=== PATIENT | female | born 2000 | race Caucasian/White ===

== ENCOUNTER 2022-02-07 11:39 | Outpatient (CLI) | payer OTHER, SELFPAY | END 2022-02-07 11:40 | disposition home or self-care (01) | LOC: AMB 03-18 19:14 | PROVIDERS: Visit Provider Family Medicine | DX: R56.9 Unspecified convulsions (principal) | CPT/HCPCS: A0425; A0427 ==

== ENCOUNTER 2022-02-07 12:03 | Emergency (ER) | payer OTHER, SELFPAY ==
[2022-02-07] VITALS (16 sets, daily range): BP systolic 94–114; BP diastolic 64–81; PULSE 56–70; RESP 14; TEMP 36.7; O2SAT 89–100; BMI 21.3
--- NOTE | 2022-02-07 12:33 | ED.GENADULT ---
HPI - General Adult General Time Seen by Provider: 12:34 Date Seen: 02/07/22 Chief complaint: Unspecified Complaint, Adult Stated complaint: Seizure Time Seen by Provider: 02/07/22 12:20 Source: patient Mode of arrival: EMS Limitations: no limitations History of Present Illness HPI narrative: Patient is a 21 year white female from [facility] attending [facility] [place]. She has noticed over the last 3 months it is every time she is stressed she gets lightheaded has to sit down, escape do a ?safe place?. She was taking a Thai final today and felt very stressed and felt like her body was ?shutting down? she did not have any seizure activity, she had normal consciousness throughout this episode, she went to the girl's bathroom and sat down. She said she gets some eye twitching with this she also gets some throat tightening. That is all gone now, ambulance was called she was brought to the hospital. She feels pretty much back to normal now she has no fevers, no chills, no chest pain, no leg swelling or edema, no bleeding or clotting problems. She has had a history she reports that she feels his depression and anxiety, anxiety has been really severe over the last 3 months. She has had no workup for this, no meds for this. Noted also she has a couple of argueta on her forearm that look old and all and also on her right ankle. When asked about this she said she was just seeing what it was like to burn part of her skin. Related Data Home Medications Medication Instructions Recorded Confirmed magnesium chloride 1 tab PO DAILY 02/07/22 02/07/22 multivitamin with minerals-folic 1 tab PO DAILY 02/07/22 02/07/22 acid 200 mcg chewable tablet (Womens Daily Gummies) Allergies Allergy/AdvReac Type Severity Reaction Status Date / Time No Known Drug Allergies Allergy Verified 02/07/22 12:06 Review of Systems Status of ROS: Reports: 10 or more systems reviewed and unremarkable except as noted in History and below [facility] Social History Smoking Status: Never smoker Do you use any of these nicotine containing products: None Second hand tobacco smoke exposure: No How often do you have a drink containing alcohol: monthly or less How often do you have six or more drinks on one occasion: Never AUDIT-C Alcohol total score: 1 Non-prescribed substance use: marijuana (any form) Non-prescribed substance use details: marijuana once monthly service: No Exam Narrative: Exam Narrative: Objective: Patient is actually somewhat giddy, alert orient x3 cooperative. I had asked her several times a put her phone down . Vital signs are unremarkable HEENT is unremarkable facial asymmetry no scleral icterus Neck is supple Chest is clear no rales or wheezing Heart rhythm regular no murmur Abdomen benign soft nontender Extremities are no edema, neurologic nonfocal Two linear small argueta on her left forearm and also similar on her right ankle medial, no cellulitis, look like they are old and scabbed. Good peripheral perfusion Mental status: Patient is alert orient x3 appears somewhat giddy, does not appear manic, does not have pressured speech, does knots discuss any suicidal ideation or plan. Const: Vital Signs, click to edit/add: Vital Signs - 24 hr 02/07/22 12:08 02/07/22 12:08 02/07/22 12:09 Temperature 98.1 F Pulse Rate 60 63 Pulse Rate [Pulse Oximeter] 66 Respiratory Rate 14 Blood Pressure 114/74 Blood Pressure [Ri ght Upper Arm] 114/74 Pulse Oximetry 98 99 99 Oxygen Delivery Me thod Room Air 02/07/22 12:30 02/07/22 12:32 02/07/22 12:33 Temperature Pulse Rate 61 65 69 Pulse Rate [Pulse Oximeter] Respiratory Rate Blood Pressure 102/81 Blood Pressure [Ri ght Upper Arm] Pulse Oximetry 99 91 89 Oxygen Delivery Me thod 02/07/22 13:00 02/07/22 13:02 02/07/22 13:30 Temperature Pulse Rate 68 64 57 L Pulse Rate [Pulse Oximeter] Respiratory Rate Blood Pressure 111/66 Blood Pressure [Ri ght Upper Arm] Pulse Oximetry 98 100 98 Oxygen Delivery Me thod 02/07/22 13:32 02/07/22 14:00 02/07/22 14:02 Temperature Pulse Rate 66 61 56 L Pulse Rate [Pulse Oximeter] Respiratory Rate Blood Pressure 108/68 110/65 Blood Pressure [Ri ght Upper Arm] Pulse Oximetry 96 98 97 Oxygen Delivery Me thod 02/07/22 14:30 02/07/22 14:31 02/07/22 15:00 Temperature Pulse Rate 70 60 63 Pulse Rate [Pulse Oximeter] Respiratory Rate Blood Pressure 97/64 Blood Pressure [Ri ght Upper Arm] Pulse Oximetry 99 91 97 Oxygen Delivery Me thod 02/07/22 15:02 02/07/22 15:30 Temperature Pulse Rate 65 66 Pulse Rate [Pulse Oximeter] Respiratory Rate Blood Pressure 94/81 Blood Pressure [Ri ght Upper Arm] Pulse Oximetry 94 94 Oxygen Delivery Me thod Course Vital Signs Vital signs: Initial Vital Signs Temperature 98.1 F 02/07/22 12:08 Temperature Source Temporal Artery Scan 02/07/22 12:08 Pulse Rate 60 02/07/22 12:08 Pulse Rhythm 02/07/22 12:08 Respiratory Rate 14 02/07/22 12:08 Blood Pressure 114/74 02/07/22 12:08 Blood Pressure Mean 87 02/07/22 12:08 Blood Pressure Position Supine 02/07/22 12:08 Pulse Oximetry 98 02/07/22 12:08 Oxygen Delivery Method 02/07/22 12:08 Vital Signs Temperature 98.1 F 02/07/22 12:08 Pulse Rate 60 02/07/22 12:08 Respiratory Rate 14 02/07/22 12:08 Blood Pressure 114/74 02/07/22 12:08 Pulse Oximetry 98 02/07/22 12:08 Oxygen Delivery Method 02/07/22 12:08 Temperature 98.1 F 02/07/22 12:08 Pulse Rate 66 02/07/22 15:30 Respiratory Rate 14 02/07/22 12:08 Blood Pressure 94/81 02/07/22 15:02 Pulse Oximetry 94 02/07/22 15:30 Oxygen Delivery Method 02/07/22 12:08 Medical Decision Making MDM Narrative Medical decision making narrative: Patient is a 21-year-old female clearly mental health issues. I think it be reasonable to check some basic labs, EKG, and lastly get a deck Telehealth assessment to determine if she could get some type of anxiety treatment or counseling. At this point she feels back to normal. This does not really seem like a seizure disorder, this seems only related anxiety. Think she needs followup with a regular physician here common will need to discuss this with her parents if she wishes. Her examination is unremarkable at this point, neurologic exam is normal, lab studies as above and disposition pending findings, and deck Telehealth assessment. Addendum: The patient's laboratory studies look reassuring, deck Telehealth assessment met with her and felt that she is safe to go home, she does have a therapist already that she has engage with she should talk to her about her anxiety, and she can return here problems or concerns. I do not see any significant evidence for some metabolic or other illness or neurologic compromise the patient's EKG by my read shows sinus bradycardia rate of 52 beats per minute which looks unremarkable thanks Lab Data Labs: Lab Results 02/07/22 02/07/22 02/07/22 Range/Units 12:32 12:41 12:41 WBC 4.69 (4.50-11.00) K/uL RBC 4.62 (4.00-5.20) m/uL Hgb 13.8 (12.0-16.0) gm/dL Hct 41.4 (33.0-51.0) % MCV 90 (80-100) fL MCH 30 (26-34) pg MCHC 33 (32-36) gm/dL RDW Coeff of Mau 11.6 (11.5-15.5) % Plt Count 244 (140-440) K/uL Neut % (Auto) 66.4 (42.0-72.0) % Lymph % (Auto) 23.5 (20-44) % Ventura % (Auto) 8.3 (0.0-11.0) % Eos % (Auto) 0.9 (0.0-7.0) % Baso % (Auto) 0.9 (0.0-3.0) % Neut # (Auto) 3.12 (1.7-7.0) K/uL Lymph # (Auto) 1.10 (0.90-2.90) K/uL Ventura # (Auto) 0.40 (0.00-0.90) K/UL Eos # (Auto) 0.04 (0.00-0.50) K/uL Baso # (Auto) 0.04 (0.00-0.30) K/uL Abs Immat Gran (auto) 0.00 (0.00-0.30) K/uL Sodium 143 (135-149) mmol/L Potassium 3.9 (3.6-5.1) mmol/L Chloride 102 (96-114) mmol/L Carbon Dioxide 26 (20-32) mmol/L BUN 10 (5-24) mg/dL Creatinine 0.8 (0.6-1.2) mg/dL Estimated Creat Clear 113.39 Estimated GFR 109 ml/min Glucose 82 (60-115) mg/dL Calcium 10.0 (8.7-10.8) mg/dL C-Reactive Protein < 0.5 L (0.5-1.0) mg/dL Urine Color (Yellow) Urine Appearance (Clear) Urine pH (5.0-8.5) Ur Specific Isabella (1.000-1.030) Urine Protein (Negative) Urine Glucose (UA) (Negative) Urine Ketones (Negative) Urine Blood (Negative) Urine Nitrite (Negative) Urine Bilirubin (Negative) Urine Urobilinogen (0.2-1.0) Ur Leukocyte Esterase (Negative) Urine RBC (0-2) Urine WBC (0-5) Ur Squamous Epith Cells (None-Few) Urine Bacteria (None) Salicylates (1.0-10) mg/dL Urine Opiates Screen (Negative) Ur Oxycodone Screen (Negative) Urine Methadone Screen (Negative) Ur Propoxyphene Screen (Negative) Acetaminophen < 10.0 L (10.0-30.0) ug/mL Ur Barbiturates Screen (Negative) U Tricyclic Antidepress (Negative) Ur Phencyclidine Scrn (Negative) Ur Amphetamines Screen (Negative) U Methamphetamines Scrn (Negative) U Benzodiazepines Scrn (Negative) Urine Cocaine Screen (Negative) U Marijuana (THC) Screen (Negative) Ur Drug Screen Comment Ethyl Alcohol (0.01-0.03) % SARS-CoV-2 (PCR) Negative SARS-CoV-2 (Negative) 02/07/22 02/07/22 02/07/22 Range/Units 12:41 12:55 12:55 WBC (4.50-11.00) K/uL RBC (4.00-5.20) m/uL Hgb (12.0-16.0) gm/dL Hct (33.0-51.0) % MCV (80-100) fL MCH (26-34) pg MCHC (32-36) gm/dL RDW Coeff of Mau (11.5-15.5) % Plt Count (140-440) K/uL Neut % (Auto) (42.0-72.0) % Lymph % (Auto) (20-44) % Ventura % (Auto) (0.0-11.0) % Eos % (Auto) (0.0-7.0) % Baso % (Auto) (0.0-3.0) % Neut # (Auto) (1.7-7.0) K/uL Lymph # (Auto) (0.90-2.90) K/uL Ventura # (Auto) (0.00-0.90) K/UL Eos # (Auto) (0.00-0.50) K/uL Baso # (Auto) (0.00-0.30) K/uL Abs Immat Gran (auto) (0.00-0.30) K/uL Sodium (135-149) mmol/L Potassium (3.6-5.1) mmol/L Chloride (96-114) mmol/L Carbon Dioxide (20-32) mmol/L BUN (5-24) mg/dL Creatinine (0.6-1.2) mg/dL Estimated Creat Clear Estimated GFR ml/min Glucose (60-115) mg/dL Calcium (8.7-10.8) mg/dL C-Reactive Protein (0.5-1.0) mg/dL Urine Color Yellow (Yellow) Urine Appearance Cloudy A (Clear) Urine pH 6.0 (5.0-8.5) Ur Specific Isabella 1.020 (1.000-1.030) Urine Protein Negative (Negative) Urine Glucose (UA) Negative (Negative) Urine Ketones 3+ A (Negative) Urine Blood Negative (Negative) Urine Nitrite Negative (Negative) Urine Bilirubin 1+ A (Negative) Urine Urobilinogen 0.2 (0.2-1.0) Ur Leukocyte Esterase 1+ A (Negative) Urine RBC 0-2 (0-2) Urine WBC 5-10 A (0-5) Ur Squamous Epith Cells Moderate A (None-Few) Urine Bacteria Moderate A (None) Salicylates < 1.0 L (1.0-10) mg/dL Urine Opiates Screen Negative (Negative) Ur Oxycodone Screen Negative (Negative) Urine Methadone Screen Negative (Negative) Ur Propoxyphene Screen Negative (Negative) Acetaminophen (10.0-30.0) ug/mL Ur Barbiturates Screen Negative (Negative) U Tricyclic Antidepress Negative (Negative) Ur Phencyclidine Scrn Negative (Negative) Ur Amphetamines Screen Negative (Negative) U Methamphetamines Scrn Negative (Negative) U Benzodiazepines Scrn Negative (Negative) Urine Cocaine Screen Negative (Negative) U Marijuana (THC) Screen Negative (Negative) Ur Drug Screen Comment See Note Ethyl Alcohol < 0.01 L (0.01-0.03) % SARS-CoV-2 (PCR) (Negative) Discharge Plan Discharge Clinical Impression: Anxiety, Near syncope Patient Disposition: Home w/ Parent or Adult Condition: Stable Additional Instructions: Light activity, follow up per deck recommendations. Recommend off school for a couple of days. Follow up with regular doctor in [place] within the next 2 days, and follow up with mental health professionals as per deck recommendation. Activity Level: Light activity Discharge Diet: Regular Prescriptions: No Action Womens Daily Gummies 200 mcg tablet,chewable 1 tab PO DAILY magnesium chloride 1 tab PO DAILY Stand Alone Forms: [employer] Info Instructions
[2022-02-07 12:53] LABS: Basophils Absolute Auto 0.04 K/uL (0.00-0.30); Basophils Percent Auto 0.9 % (0.0-3.0); Eosinophils Absolute Auto 0.04 K/uL (0.00-0.50); Eosinophils Percent Auto 0.9 % (0.0-7.0); Hematocrit 41.4 % (33.0-51.0); Hemoglobin* 13.8 gm/dL (12.0-16.0); Lymphocytes Percent Auto 23.5 % (20-44); Mean Corpuscular HGB Conc 33 gm/dL (32-36); Mean Corpuscular Hemoglobin 30 pg (26-34); Mean Corpuscular Volume 90 fL (80-100); Monocytes Percent Auto 8.3 % (0.0-11.0); Neutrophils Absolute Auto 3.12 K/uL (1.7-7.0); Neutrophils Percent Auto 66.4 % (42.0-72.0); Platelet Count* 244 K/uL (140-440); RDW Coefficient of Variation % 11.6 % (11.5-15.5); Red Blood Count 4.62 m/uL (4.00-5.20); White Blood Count* 4.69 K/uL (4.50-11.00)
[2022-02-07 12:58] LABS: Slide Review Reflex No
[2022-02-07 13:01] LABS: Appearance Urine Cloudy (Clear); Bilirubin Urine 1+ (Negative); Blood Urine Negative (Negative); Color Urine Yellow (Yellow); Glucose Urine Negative (Negative); Ketones Urine 3+ (Negative); Leukocyte Esterase Urine 1+ (Negative); Nitrite Urine Negative (Negative); Protein Urine Negative (Negative); Urobilinogen Urine 0.2 (0.2-1.0)
[2022-02-07 13:07] LABS: Chloride* 102 mmol/L (96-114); Potassium* 3.9 mmol/L (3.6-5.1); Sodium* 143 mmol/L (135-149)
[2022-02-07 13:08] LABS: Amphetamine Screen Urine Negative (Negative); Barbiturate Screen Urine Negative (Negative); Benzodiazepines Screen Urine Negative (Negative); Cannabinoid Screen Urine Negative (Negative); Cocaine Screen Urine Negative (Negative); Methadone Screen Urine Negative (Negative); Methamphetamines Screen Urine Negative (Negative); Opiate Screen Urine Negative (Negative); Oxycodone Screen Urine Negative (Negative); Phencyclidine Screen Urine Negative (Negative); Tricyclic Antidepressant Urine Negative (Negative)
[2022-02-07 13:10] LABS: Creatinine* 0.8 mg/dL (0.6-1.2); Est. Creatinine Clearance* 113.39; Estimated Glomerular Filt Rate 109 ml/min
[2022-02-07 13:11] LABS: Blood Urea Nitrogen* 10 mg/dL (5-24); Carbon Dioxide* 26 mmol/L (20-32); Glucose* 82 mg/dL (60-115)
[2022-02-07 13:13] LABS: Acetaminophen* < 10.0 ug/mL (10.0-30.0); Ethanol* < 0.01 % (0.01-0.03); Salicylate* < 1.0 mg/dL (1.0-10)
[2022-02-07 13:16] LABS: C Reactive Protein* < 0.5 mg/dL (0.5-1.0)
[2022-02-07 13:25] LABS: Bacteria Urine Moderate; RBC Urine 0-2 (0-2); Squamous Epithelial Cell Urine Moderate (None-Few)
[2022-02-07 14:00] LABS: SARS PCR* Negative SARS-CoV-2 (Negative)
--- NOTE | 2022-02-18 01:19 | ED.NURSE ---
Call from Yuri Loomis Pt is there now, with brief questions
== END 2022-02-07 15:33 | disposition home or self-care (01) ==
PROVIDERS: Emergency Provider Family Medicine
DX: F41.9 Anxiety disorder, unspecified (principal); R55 Syncope and collapse
CPT/HCPCS: 36415; 80048; 80143; 80179; 80306; 81001; 82077; 85025; 86140; 87086; 87635; 93005; 99284

== ENCOUNTER 2022-02-18 00:56 | Outpatient (CLI) | payer OTHER, SELFPAY | END 2022-02-18 00:57 | disposition home or self-care (01) | LOC: AMB 03-23 08:24 | PROVIDERS: Visit Provider Family Medicine | DX: R56.9 Unspecified convulsions (principal); S09.90XA Unspecified injury of head, initial encounter; W18.30XA Fall on same level, unspecified, initial encounter; Y93.89 Activity, other specified; Y92.214 College as the place of occurrence of the external cause | CPT/HCPCS: A0998 ==